=== PATIENT | female | born 1965 | race African-American/Black ===

== ENCOUNTER 2018-04-09 21:40 | Emergency (ER) | payer OTHER ==
[~2018-04-09] VITALS: Ht 167.6 cm; Wt 111.6 kg
[~2018-04-09 21:40] MED LIST: METFORMIN HCL500 MG PO
[2018-04-09] MEDS ORDERED: TRAMADOL 50 MG50 MG PO (23:13)
[2018-04-09 23:39] VITALS: BP 142/87
== END 2018-04-09 23:30 | disposition home or self-care (01) ==
LOC: ER 21:40
DX: M17.11 Unilateral primary osteoarthritis, right knee (principal); E11.9 Type 2 diabetes mellitus without complications; I10 Essential (primary) hypertension; Z88.0 Allergy status to penicillin; W10.8XXA Fall (on) (from) other stairs and steps, initial encounter; Y93.89 Activity, other specified; Y92.89 Other specified places as the place of occurrence of the external cause; Y99.8 Other external cause status